=== PATIENT | female | born 1970 | race Caucasian/White ===

== ENCOUNTER 2024-07-07 00:49 | Observation (INO) | payer OTHER, SELFPAY ==
--- NOTE | 2024-07-07 00:54 | PC.NURSE ---
Patient arrived to floor via stretcher with EMS from [facility] at 00:52.
[2024-07-07 00:58] VITALS: PULSE 102
[2024-07-07 01:25] VITALS: BP 151/91; PULSE 102; RESP 17; TEMP 36.7; O2SAT 95; BMI 33.0
--- NOTE | 2024-07-07 01:49 | ECG_ITS ---
APPROVED REPORT Exam: Resting ECG HR:103 bpm ECG Measurements Heart Rate 103 AXES AK 134 P 76 QRSd 125 QRS 133 QT 377 T 46 QTc 436 Conclusion SINUS TACHYCARDIA RIGHT BUNDLE BRANCH BLOCK [120+ ms QRS DURATION, UPRIGHT V1, 40+ ms S IN I/aVL/V4/V5/V6] LEFT POSTERIOR FASCICULAR BLOCK [QRS AXIS > 109, INFERIOR Q] ABNORMAL ECG UNCONFIRMED REPORT Electronically signed by : Mark Figueroa MD 07/07/2024 08:41:56
--- NOTE | 2024-07-07 01:54 | P.HP_ITS ---
<Statement entered by Zhang Evans MD - 07/07/24 15:07> Rounded on patient after nurse practitioner. Personally examined and interviewed patient. Agree with exam findings and care plan as documented. History of Present Illness *Admission Date: 07/07/24 *Reason for visit:: Transplant *History of present illness: A 54-year-old female with a history of COPD, type 2 diabetes, congestive heart failure (CHF), bipolar disorder, hypertension, anxiety, prior myocardial infarction with cardiac stenting (vessel unknown), and reported leg deep vein thrombosis (DVT) presents as a transfer from [facility] to [facility] for NSTEMI evaluation, accepted by Dr. Villafuerte. She initially reported to [facility] with 2?3 days of cough (producing green sputum), increasing shortness of breath, and chest pain worse on inhalation. She denies fever or chills. She uses a home nebulizer without relief, takes hydroxyzine for anxiety (ineffective), and smokes 2 packs of cigarettes daily. She claims compliance with medications but cannot name them; records confirm anticoagulation clopidogrel (Plavix) 75 mg daily and aspirin 81 mg daily. The history is limited due to poor historian status but was obtained through interactive discussion with the patient, deemed moderately reliable, and chart review. At [facility], she was hypertensive (BP 173/98), tachycardic (HR 127), with oxygen saturation 98% on 3 L nasal cannula (EMS-initiated, unknown baselin e). EKG showed sinus tachycardia, occasional PVCs, and incomplete right bundle branch block. Troponin was elevated at 1155 ng/L, WBC 7.7, hemoglobin 16.5, hematocrit 48.8, platelets 217, glucose 395, BUN 24, creatinine 1.0, and calcium 9.5. Chest X-ray showed bilateral lower lung haziness and slight right costophrenic angle blunting, with normal heart size. She received 750 mg IV levofloxacin (Levaquin), 5 mg IV metoprolol, 325 mg oral aspirin, and an ACS dose of enoxaparin (Lovenox, dose not specified). Dr. Villafuerte recommended transfer for NSTEMI. On arrival at [facility], the patient is on 3 L nasal cannula with BP 140/85, HR 107, respiratory rate 18, oxygen saturation 96%, and afebrile. Patient is resting comfortably with suggestively improved appearance from description from [facility] with chest pain reduced to 2/10 (pressure/discomfort on deep inhalation). EKG shows sinus tachycardia and right bundle branch block, unchanged. Repeat troponin is 0.06 ng/L, D-dimer elevated at 0.86 ?g/mL. CTA chest is pending. She is monitored with hospital medicine and cardiology consultation planned. [facility] Disclaimer: The information contained in this section may have been updated after the patient was seen, as this information can be updated by other users. Medical History (Updated 07/07/24 @ 08:25 by Jose J Tyler APRN) Bipolar disorder Anxiety Hypertension CHF (congestive heart failure) COPD (chronic obstructive pulmonary disease) Diabetes mellitus Surgical History (Updated 07/07/24 @ 03:04 by Naya Mitchell RN) History of partial hysterectomy Family History (Updated 07/07/24 @ 03:04 by Naya Mitchell RN) Other Family history of diabetes mellitus Family history of heart disease Family history of lung cancer Social History (Updated 07/07/24 @ 03:00 by Naya Mitchell RN) Smoking Status: Current every day smoker alcohol intake: never current occupational status: disabled Travel in the last 8 weeks: None Other Medical History Have you received the Flu Vaccine for this season: No Have you received the Pneumonia Vaccine: No Review of Systems Review of Systems Review of systems (narrative): 13 point review of system negative except as listed in HPI Meds Home Medications and Allergies Home Medications ?Medication ?Instructions ?Recorded ?Confirmed ?Type aspirin 81 mg chewable tablet 81 mg PO DAILY 07/07/24 07/07/24 History atorvastatin 80 mg tablet 80 mg PO HS 07/07/24 07/07/24 History budesonide 160 mcg-glycopyr 9 2 inh inhalation BID 07/07/24 07/07/24 History mcg-formot 4.8 mcg/actuation HFA inhaler (Breztri Aerosphere) bupropion HCl 150 mg tablet,12 hr 150 mg PO BID 07/07/24 07/07/24 History sustained-release celecoxib 200 mg capsule (Celebrex) 200 mg PO DAILY 07/07/24 07/07/24 History cetirizine 10 mg tablet 10 mg PO DAILY 07/07/24 07/07/24 History clopidogrel 75 mg tablet (Plavix) 75 mg PO DAILY 07/07/24 07/07/24 History dulaglutide 1.5 mg/0.5 mL 1.5 mg SQ WEEKLY 07/07/24 07/07/24 History subcutaneous pen injector (Trulicity) famotidine 20 mg tablet 20 mg PO BID 07/07/24 07/07/24 History glipizide 10 mg tablet, extended 10 mg PO DAILY 07/07/24 07/07/24 History release 24 hr hydroxyzine HCl 25 mg tablet 25 mg PO TID 07/07/24 07/07/24 History insulin glargine 100 unit/mL (3 30 unit SQ HS 07/07/24 07/07/24 History mL) subcutaneous pen (Lantus Solostar U-100 Insulin) ipratropium 0.5 mg-albuterol 3 mg 3 ml inhalation QID 07/07/24 07/07/24 History (2.5 mg base)/3 mL nebulization soln isosorbide mononitrate 30 mg 30 mg PO DAILY 07/07/24 07/07/24 History tablet,extended release 24 hr lisinopril 5 mg tablet 5 mg PO DAILY 07/07/24 07/07/24 History metoprolol succinate 50 mg 50 mg PO DAILY 07/07/24 07/07/24 History tablet,extended release 24 hr montelukast 10 mg tablet 10 mg PO HS 07/07/24 07/07/24 History paroxetine HCl 40 mg tablet 40 mg PO DAILY 07/07/24 07/07/24 History spironolactone 25 mg tablet 25 mg PO DAILY 07/07/24 07/07/24 History thiamine HCl (vitamin B1) 100 mg 100 mg PO DAILY 07/07/24 07/07/24 History tablet tizanidine 4 mg tablet 4 mg PO TIDP PRN muscle spasms 07/07/24 07/07/24 History trazodone 50 mg tablet 50 mg PO HS 07/07/24 07/07/24 History New Prescriptions to Start Prescriptions: Allergies Allergy/AdvReac Type Severity Reaction Status Date / Time amoxicillin Allergy Unknown Verified 07/07/24 03:52 allergy reaction ampicillin Allergy Unknown Verified 07/07/24 03:52 allergy reaction empagliflozin (From Allergy Unknown Verified 07/07/24 03:52 Jardiance) allergy reaction Exam Data for Last 24 hours Vital signs and Labs for Last 24 Hours: Temp Pulse Resp BP Pulse Ox O2 Del Method O2 Flow Rate 98.5 F 107 H 18 140/85 96 Nasal Cannula 3 07/07/24 04:00 07/07/24 04:00 07/07/24 04:00 07/07/24 04:00 07/07/24 04:00 07/07/24 06:47 07/07/24 06:47 Laboratory Results - last 24 hr 07/07/24 01:22: D-Dimer 0.86 H, Troponin I 0.06 H, NT-Pro-B Natriuret Pep 820 H 07/07/24 04:45: WBC 7.1, RBC 5.40, Hgb 16.1, Hct 47.0, MCV 87.0, MCH 29.8, MCHC 34.3, RDW 13.3, Plt Count 228, MPV 10.7 H, Neut % (Auto) 89.3 H, Lymph % (Auto) 7.8 L, Winston % (Auto) 1.4 L, Eos % (Auto) 0.1, Baso % (Auto) 0.6, Neut # (Auto) 6.3, Lymph # (Auto) 0.6 L, Winston # (Auto) 0.1, Eos # (Auto) 0.0, Baso # (Auto) 0.0, PT 10.8, INR 0.96, Sodium 137, Potassium 5.7 H, Chloride 103, Carbon Dioxide 24, Anion Gap 15.7 H, BUN 25 H, Creatinine 0.80, Estimated Creat Clear 98, Estimated GFR 74, Est GFR ( Amer) 90, Glucose 417 H*, Hemoglobin A1c 12.9 H, Calcium 8.9, Phosphorus 4.6 H, Magnesium 1.8, TSH 1.43 07/07/24 05:47: POC Glucose 378 H* I & O for Last 24 hours: Intake & Output 07/04/24 07/05/24 07/06/24 07/07/24 23:59 23:59 23:59 23:59 Output Total 0 / 0 Balance 0 / 0 Weight 79.424 kg Constitutional Constitutional: no acute distress and obese *Routine HEENT Exam Head: Present normocephalic Eye: Present EOMI, PERRL, scleral injection and conjunctivae pink ENT: Present mucous membranes dry *Routine Neck Exam Neck: Present supple; Absent lymphadenopathy *Routine Respiratory Exam Respiratory: Present CTA bilaterally *Routine Cardiovascular Exam Cardiovascular: Present RRR and tachycardia *Routine Abdominal Exam Abdominal: Present soft, normoactive bowel sounds and obese; Absent tenderness *Routine Rectal Exam Rectal:: deferred *Routine Genitalia Exam Genitalia:: deferred *Routine Extremities Exam Extremities: Absent cyanosis, clubbing or edema *Routine Skin Exam Skin: Present dry and warm; Absent rash *Routine Neurological Exam Neurological: Present alert and oriented X3 Assessment and Plan *Assessment and plan (1) NSTEMI (non-ST elevated myocardial infarction): Status: Acute Category: Medical Code(s): I21.4 - Non-ST elevation (NSTEMI) myocardial infarction (2) Sinus tachycardia by electrocardiogram: Status: Acute Category: Medical Code(s): R00.0 - Tachycardia, unspecified (3) Type 2 diabetes mellitus with hyperglycemia: Status: Acute Category: Medical Code(s): E11.65 - Type 2 diabetes mellitus with hyperglycemia (4) CAD (coronary artery disease): Status: Acute Category: Medical Code(s): I25.10 - Atherosclerotic heart disease of kaibab coronary artery without angina pectoris (5) History of deep vein thrombosis: Status: Acute Category: Medical Code(s): Z86.718 - Personal history of other venous thrombosis and embolism (6) Tobacco dependence due to cigarettes: Status: Acute Category: Medical Code(s): F17.210 - Nicotine dependence, cigarettes, uncomplicated (7) Community acquired bilateral lower lobe pneumonia: Status: Acute Category: Medical Code(s): J18.9 - Pneumonia, unspecified organism Plan * Non-ST Elevation Myocardial Infarction (NSTEMI): Troponin 1155 ng/L at [facility], now 0.06 ng/L, with chest pain (2/10, worse on inhalation), sinus tachycardia (HR 107), and prior TN/stenting, in a patient with CHF (NT-proBNP 820), COPD, and smoking history. * Continue enoxaparin (Lovenox, verify dose, e.g., 1 mg/kg subcutaneous every 12 hours) for ACS, with clopidogrel 75 mg daily and aspirin 81 mg daily. * Consult cardiology urgently for NSTEMI evaluation obtain prior stent records for vessel/location. * Continue to trend troponin repeat EKG if chest pain worsens or new symptoms * Maintain telemetry for arrhythmia monitoring (PVCs, RBBB noted); monitor for ischemic symptoms every 4 hours. * Administer metoprolol 5 mg IV every 6 hours as needed for HR >100, holding if BP <100 systolic or HR <60. * Admit to medical-surgical floor with cardiology oversight. * Congestive Heart Failure Exacerbation: NT-proBNP 820, shortness of breath, bilateral lower lung haziness, and blunted right costophrenic angle, suggesting mild pulmonary edema, in a patient with NSTEMI and COPD, no reported edema but likely fluid overload. * Initiate furosemide (Lasix) 40 mg IV daily, holding if BP <90 systolic or hypovolemia signs * Order echocardiogram to assess ejection fraction and fluid status; compare to prior records. * Monitor daily weights * Consult cardiology for CHF management, considering NSTEMI and fluid balance * Maintain fluids at 50 mL/hour IV saline, adjusting for NSTEMI and CHF needs. * Chronic Obstructive Pulmonary Disease (COPD) Exacerbation: Cough with green sputum, shortness of breath, chest X-ray haziness, on 3 L nasal cannula (O2 96%), home nebulizer ineffective, in a 2 pack/day smoker, with possible pneumonia. * Administer albuterol-ipratropium (DuoNeb) nebulizer every 4?6 hours as needed for wheezing or dyspnea. * Continue levofloxacin 750 mg IV daily (initiated at [facility]) pending sputum culture and respiratory viral panel to rule out bacterial/viral infection. * Continue 3 L nasal cannula, titrating to O2 >92; monitor respiratory rate and saturation every 2 hours. * Consult pulmonology for COPD optimization and smoking cessation counseling; offer nicotine replacement (e.g., 21 mg patch daily). * Order chest X-ray in 24 hours to monitor lung haziness; await CTA chest results for pulmonary assessment. * Type 2 Diabetes Mellitus with Hyperglycemia: Glucose 395, likely uncontrolled diabetes exacerbated by stress or infection, no prior A1c reported, in a patient with COPD and NSTEMI. * Administer sliding-scale insulin every 6, continue or start long-acting insulin * Order hemoglobin A1c to assess chronic control; consult endocrinology if A1c >7% or glucose exceeds 300. * Monitor glucose every 6 hours; recheck with morning labs. * Educate patient on low-carb diet to support glucose control; consult dietitian for diabetes-friendly meal plan. * Hypertension: BP 140/85 (improved from 173/98), likely chronic and stress- related, no end-organ damage (troponin 0.06, normal EKG), in a patient with NSTEMI and CHF. * Continue metoprolol as above for rate control; hold additional antihypertensives if BP <110 systolic to avoid hypotension with NSTEMI. * Monitor BP every 4 hours, targeting <140/90; resume home antihypertensives once stable post-cardiology evaluation. * Recheck electrolytes in 24 hours to monitor for medication effects * Anxiety and Bipolar Disorder: History of anxiety (hydroxyzine ineffective) and bipolar disorder, with no acute psychiatric symptoms beyond stress from symptoms, in a patient with poor coping (2 pack/day smoking). * Hold hydroxyzine * History of DVT and Tobacco Dependence: Reported prior leg DVT, on Plavix and aspirin, with elevated D-dimer (0.86), and ongoing 2 pack/day smoking, increasing NSTEMI and COPD risks. * Await CTA chest to rule out pulmonary embolism; continue Lovenox as above for NSTEMI, monitoring for bleeding (hemoglobin 16.5). * Offer nicotine replacement and smoking cessation counseling; consult pulmonology for lung cancer screening (smoking history). * Monitor for leg swelling, pain, or new DVT signs every 8 hours; order lower extremity Doppler if symptoms arise. * Educate patient on smoking cessation benefits for cardiovascular and pulmonary health. Additional Orders: * Admit to medical-surgical floor with telemetry for NSTEMI, CHF, and COPD management. * Maintain 3 L nasal cannula, titrating to saturation >92. * Check vitals every 4 hours, including glucose every 4 hours. * Offer acetaminophen 650 mg oral every 6 hours as needed for discomfort; avoid NSAIDs due to bleeding risk (Plavix, Lovenox).[email or web address]. * Educate patient on NSTEMI, CHF, COPD, and smoking cessation. * Expedite CTA chest results, cardiology/pulmonology consults, NT-proBNP trend, and sputum culture.
[2024-07-07 01:57] LABS: Troponin I 0.06 ng/ml (0.00-0.034)
[2024-07-07 02:08] LABS: D-Dimer 0.86 ug/mL (0.0-0.5)
[2024-07-07 02:20] LABS: NT Pro Brain Natriuretic Pep. 820 pg/mL (0-125)
[2024-07-07] MEDS: CEFTRIAXONE 1 GM 1 GM in 0.9 % SODIUM CHLORIDE 50 ML IV (02:22)
[2024-07-07] MEDS: 0.9 % SODIUM CHLORIDE 1000ML 1,000 ML 75 ML IV (02:22)
[2024-07-07] MEDS: AZITHROMYCIN 500 MG in 0.9 % SODIUM CHLORIDE 250 ML 250 MG IV (02:55)
[2024-07-07 03:44] VITALS: PULSE 112
[2024-07-07] MEDS: SODIUM CHLORIDE 3% 15ML NEB 3 ML IH (03:47)
[2024-07-07 04:00] VITALS: BP 140/85; PULSE 107; PULSE 110; RESP 18; TEMP 36.9; O2SAT 96; BMI 33.0
[2024-07-07 05:20] LABS: Basophils % 0.6 % (0.1-2.0); Eosinophils % 0.1 % (0.1-12.0); Hemoglobin 16.1 g/dL (12.2-16.2); Lymphocytes # 0.6 K/mm3 (0.7-4.5); Lymphocytes % 7.8 % (10-50); Mean Corpuscular HGB Conc 34.3 g/dL (31.8-35.4); Mean Corpuscular Hemoglobin 29.8 pg (27.0-31.2); Mean Platelet Volume 10.7 fl (7.4-10.4); Monocytes # 0.1 K/mm3 (0.1-1.0); Monocytes % 1.4 % (1.7-9.3); Neutrophils # 6.3 K/mm3 (1.8-7.8); Neutrophils % 89.3 % (37.0-80.0); Nucleated Red Blood Cells # 0 10^3/uL; Nucleated Red Blood Cells % 0 %; Platelet Count 228 K/mm3 (142-424); Red Cell Distribution Width 13.3 % (11.5-17.5); Red Cell Distribution Width-SD 41.5 fL; White Blood Count 7.1 K/mm3 (4.8-10.8)
[2024-07-07 05:29] LABS: Chloride 103 mmol/L (98-107); INR 0.96 (0.9-1.1); Potassium 5.7 mmoL/L (3.5-5.1); Prothrombin Time 10.8 seconds (10.1-12.5); Sodium 137 mmol/L (136-145)
[2024-07-07 05:32] LABS: Anion Gap 15.7 mEq/L (5-15); Blood Urea Nitrogen 25 mg/dl (7-17); Carbon Dioxide 24 mmol/L (22.0-30.0); Creatinine Clearance Estimated 98 mL/min (50-200); Estimated Glomerular Filt Rate 74 ml/min (>60); GFR (African American) 90 ML/MIN (>60); Phosphorous 4.6 mg/dl (2.5-4.5)
[2024-07-07 05:33] LABS: Calcium 8.9 mg/dl (8.4-10.2); Magnesium 1.8 mg/dl (1.6-2.3)
[2024-07-07 05:43] LABS: Hemoglobin A1C 12.9 % (4.0-6.0)
[2024-07-07 05:44] LABS: Glucose 417 mg/dl (74-100)
[2024-07-07] MEDS: humaLOG 100 UNITS/ML 10ML VIAL (SSI) SUBCUT (05:49)
[2024-07-07 05:57] LABS: POC Glucose,Bedside 378 (70-110)
[2024-07-07 06:03] LABS: Thyroid Stimulating Hormone 1.43 uIU/mL (0.465-4.68)
--- NOTE | 2024-07-07 07:07 | CT_ITS ---
FINAL REPORT TECHNIQUE: The patient was injected with IV contrast. Axial images were obtained through the chest in a PE protocol. 3-D reconstruction images were also performed. Individualized dose reduction techniques using automated exposure control or adjustment of the MA and/or KV according to patient's size were employed. CLINICAL HISTORY: dyspnea, new oxygen requirement FINDINGS: Mediastinal vasculature is adequately opacified. No pulmonary artery filling defects are identified to suggest PE. There is no aortic dissection. There is no axillary adenopathy. There is no hilar or mediastinal adenopathy. The heart size is normal. There is no pericardial or pleural effusion. There are mild to moderate changes of centrilobular emphysema. There is a noncalcified nodule in the right lower lobe measuring up to 7 mm in greatest dimension. This is best seen on image 40 of series 3. Bibasilar pulmonary scarring is noted. Limited images of the upper abdomen demonstrate multiple calcified granulomas in the spleen. IMPRESSION: No pulmonary embolus or dissection. 7 mm right lower lobe nodule. CT chest in 6 months is recommended per Fleischner Society criteria. Reviewed, Interpreted and Dictated by Paul Oviedo MD Transcribed by Kalpana Avina Authenticated and [facility] [place]
[2024-07-07] MEDS: IOPAMIDOL-370 (76%);100ML BOTTLE 85 ML IV (07:42)
[2024-07-07] MEDS: 0.9 % SODIUM CHLORIDE 50 ML VIAL IV (07:42)
[2024-07-07] MEDS: SODIUM CHLORIDE 0.9% 10ML SYR (RAD ONLY) 10 ML IV (07:43)
[2024-07-07 08:00] VITALS: BP 146/89; PULSE 100; PULSE 103; RESP 16; TEMP 36.1; O2SAT 98
[2024-07-07] MEDS: CLOPIDOGREL 75MG TAB 75 MG PO (08:21)
[2024-07-07] MEDS: ISOSORBIDE MONO 30MG TAB.ER.24H 30 MG PO (08:21)
[2024-07-07] MEDS: ENOXAPARIN 80MG/0.8ML SYRINGE 80 MG SUBCUT (08:21)
[2024-07-07] MEDS: INSULIN GLARGINE 100 UNITS/ML 3ML FLEXPEN 40 UNIT SUBCUT (08:21)
[2024-07-07] MEDS: SPIRONOLACTONE 25MG TABLET 25 MG PO (08:21)
[2024-07-07 08:24] LABS: Troponin I 0.05 ng/ml (0.00-0.034)
--- NOTE | 2024-07-07 12:32 | PC.NURSE ---
Pt requested AMA paper, she stated that she was just ready to go home. This nurse and MD made pt aware of risks when leaving AMA, pt verbalized understanding. AMA paper signed and IV was removed. Daughter came to room to pick pt up.
--- NOTE | 2024-07-07 15:08 | P.DS_ITS ---
General Admission date:: 07/07/24 Discharge date: 07/07/24 HPI HPI HPI: A 54-year-old female with a history of COPD, type 2 diabetes, congestive heart failure (CHF), bipolar disorder, hypertension, anxiety, prior myocardial infarction with cardiac stenting (vessel unknown), and reported leg deep vein thrombosis (DVT) presents as a transfer from [facility] to [facility] for NSTEMI evaluation, accepted by Dr. Villafuerte. She initially reported to [facility] ER with 2?3 days of cough (producing green sputum), increasing shortness of breath, and chest pain worse on inhalation. She denies fever or c hills. She uses a home nebulizer without relief, takes hydroxyzine for anxiety (ineffective), and smokes 2 packs of cigarettes daily. She claims compliance with medications but cannot name them; records confirm anticoagulation clopidogrel (Plavix) 75 mg daily and aspirin 81 mg daily. The history is limited due to poor historian status but was obtained through interactive discussion with the patient, deemed moderately reliable, and chart review. At [facility], she was hypertensive (BP 173/98), tachycardic (HR 127), with oxygen saturation 98% on 3 L nasal cannula (EMS-initiated, unknown baseline). EKG showed sinus tachycardia, occasional PVCs, and incomplete right bundle branch block. Troponin was elevated at 1155 ng/L, WBC 7.7, hemoglobin 16.5, hematocrit 48.8, platelets 217, glucose 395, BUN 24, creatinine 1.0, and calcium 9.5. Chest X-ray showed bilateral lower lung haziness and slight right costophrenic angle blunting, with normal heart size. She received 750 mg IV levofloxacin (Levaquin), 5 mg IV metoprolol, 325 mg oral aspirin, and an ACS dose of enoxaparin (Lovenox, dose not specified). Dr. Villafuerte recommended transfer for NSTEMI. On arrival at [facility], the patient is on 3 L nasal cannula with BP 140/85, HR 107, respiratory rate 18, oxygen saturation 96%, and afebrile. Patient is resting comfortably with suggestively improved appearance from description from [facility] with chest pain reduced to 2/10 (pressure/discomfort on deep inhalation). EKG shows sinus tachycardia and right bundle branch block, unchanged. Repeat troponin is 0.06 ng/L, D-dimer elevated at 0.86 ?g/mL. CTA chest is pending. She is monitored with hospital medicine and cardiology consultation planned. Hospital Course Hospital Course Hospital Course: Patient presented as transfer due to NSTEMI and COPD exacerbation versus CHF exacerbation versus pneumonia. Troponin was detectable at 0.06. BNP 800. A1c elevated showing severely uncontrolled diabetes with at 12.9. Cardiology was consulted to evaluate. On morning rounds, discussed plan for the day of cardiology evaluation, possible heart cath, and continued antibiotics. Patient frustrated that nothing has been done yet. Explained that she had just been transferred and we needed to do further workup to determine appropriate intervention. Discussed need for continued admission. Patient stated she did not want to stay for further workup. Explained that this risk to life and limb given the findings of stress on her heart, continued respiratory infection, and concern for increased oxygen requirement from baseline. After explaining risks of leaving his medical advice and benefits of staying for further management, patient elected to leave via patient directed discharge. No adjustments made to home medication regimen at discharge. High risk for decompensation, readmission, increased morbidity/mortality. Patient left before being evaluated by cardiology. Exam Data for Last 24 hours Vital signs and Labs for Last 24 Hours: Temp Pulse Resp BP Pulse Ox O2 Del Method O2 Flow Rate 96.9 F L 103 H 16 146/89 H 98 Nasal Cannula 3 07/07/24 08:00 07/07/24 08:00 07/07/24 08:00 07/07/24 08:00 07/07/24 08:00 07/07/24 09:00 07/07/24 09:00 Laboratory Results - last 24 hr 07/07/24 01:22: D-Dimer 0.86 H, Troponin I 0.06 H, NT-Pro-B Natriuret Pep 820 H 07/07/24 04:45: WBC 7.1, RBC 5.40, Hgb 16.1, Hct 47.0, MCV 87.0, MCH 29.8, MCHC 34.3, RDW 13.3, Plt Count 228, MPV 10.7 H, Neut % (Auto) 89.3 H, Lymph % (Auto) 7.8 L, [place] % (Auto) 1.4 L, Eos % (Auto) 0.1, Baso % (Auto) 0.6, Neut # (Auto) 6.3, Lymph # (Auto) 0.6 L, [place] # (Auto) 0.1, Eos # (Auto) 0.0, Baso # (Auto) 0.0, PT 10.8, INR 0.96, Sodium 137, Potassium 5.7 H, Chloride 103, Carbon Dioxide 24, Anion Gap 15.7 H, BUN 25 H, Creatinine 0.80, Estimated Creat Clear 98, Estimated GFR 74, Est GFR ( Amer) 90, Glucose 417 H*, Hemoglobin A1c 12.9 H, Calcium 8.9, Phosphorus 4.6 H, Magnesium 1.8, TSH 1.43 07/07/24 05:47: POC Glucose 378 H* 07/07/24 07:50: Troponin I 0.05 H I & O for Last 24 hours: Intake & Output 07/04/24 07/05/24 07/06/24 07/07/24 23:59 23:59 23:59 23:59 Intake Total 0 / 0 Output Total 0 / 0 Balance 0 / 0 Weight 79.424 kg Constitutional Constitutional: mild distress, obese, chronically ill appearing and cooperative *Routine HEENT Exam Head: Present normocephalic Eye: Present EOMI and PERRL ENT: Present mucous membranes moist *Routine Neck Exam Neck: Present supple; Absent lymphadenopathy *Routine Respiratory Exam Respiratory: Present prolonged expiratory phase, rhonchi and wheezes; Absent crackles *Routine Cardiovascular Exam Cardiovascular: Present RRR *Routine Abdominal Exam Abdominal: Present soft and normoactive bowel sounds; Absent tenderness *Routine Rectal Exam Patient deferred: visual exam *Routine Exam Patient deferred: external exam *Routine Extremities Exam Extremities: Present edema (trace); Absent cyanosis or clubbing *Routine Skin Exam Skin: Present intact and warm; Absent rash *Routine Neurological Exam Neurological: Present alert, oriented X3 and moving all extremities; Absent altered mental status Results Data Completed and Pending Labs on day of discharge: Labs from last 24 hours 07/07/24 07/07/24 07/07/24 07:50 05:47 04:45 WBC 7.1 RBC 5.40 Hgb 16.1 Hct 47.0 MCV 87.0 MCH 29.8 MCHC 34.3 RDW 13.3 Plt Count 228 MPV 10.7 H Neut % (Auto) 89.3 H Lymph % (Auto) 7.8 L [place] % (Auto) 1.4 L Eos % (Auto) 0.1 Baso % (Auto) 0.6 Neut # (Auto) 6.3 Lymph # (Auto) 0.6 L [place] # (Auto) 0.1 Eos # (Auto) 0.0 Baso # (Auto) 0.0 PT 10.8 INR 0.96 D-Dimer Sodium 137 Potassium 5.7 H Chloride 103 Carbon Dioxide 24 Anion Gap 15.7 H BUN 25 H Creatinine 0.80 Estimated Creat Clear 98 Estimated GFR 74 Est GFR ( Amer) 90 Glucose 417 H* POC Glucose 378 H* Hemoglobin A1c 12.9 H Calcium 8.9 Phosphorus 4.6 H Magnesium 1.8 Troponin I 0.05 H NT-Pro-B Natriuret Pep TSH 1.43 07/07/24 01:22 WBC RBC Hgb Hct MCV MCH MCHC RDW Plt Count MPV Neut % (Auto) Lymph % (Auto) [place] % (Auto) Eos % (Auto) Baso % (Auto) Neut # (Auto) Lymph # (Auto) [place] # (Auto) Eos # (Auto) Baso # (Auto) PT INR D-Dimer 0.86 H Sodium Potassium Chloride Carbon Dioxide Anion Gap BUN Creatinine Estimated Creat Clear Estimated GFR Est GFR ( Amer) Glucose POC Glucose Hemoglobin A1c Calcium Phosphorus Magnesium Troponin I 0.06 H NT-Pro-B Natriuret Pep 820 H TSH DS: Diagnosis Discharge Diagnosis (1) NSTEMI (non-ST elevated myocardial infarction): Status: Acute Code(s): I21.4 - Non-ST elevation (NSTEMI) myocardial infarction (2) Sinus tachycardia by electrocardiogram: Status: Acute Code(s): R00.0 - Tachycardia, unspecified (3) Type 2 diabetes mellitus with hyperglycemia: Status: Acute Code(s): E11.65 - Type 2 diabetes mellitus with hyperglycemia (4) CAD (coronary artery disease): Status: Acute Code(s): I25.10 - Atherosclerotic heart disease of [place] coronary artery without angina pectoris (5) History of deep vein thrombosis: Status: Acute Code(s): Z86.718 - Personal history of other venous thrombosis and embolism (6) Tobacco dependence due to cigarettes: Status: Acute Code(s): F17.210 - Nicotine dependence, cigarettes, uncomplicated (7) Community acquired bilateral lower lobe pneumonia: Status: Acute Code(s): J18.9 - Pneumonia, unspecified organism Meds Home Medications and Allergies Home Medications ?Medication ?Instructions ?Recorded ?Confirmed ?Type aspirin 81 mg chewable tablet 81 mg PO DAILY 07/07/24 07/07/24 History atorvastatin 80 mg tablet 80 mg PO HS 07/07/24 07/07/24 History budesonide 160 mcg-glycopyr 9 2 inh inhalation BID 07/07/24 07/07/24 History mcg-formot 4.8 mcg/actuation HFA inhaler (Breztri Aerosphere) bupropion HCl 150 mg tablet,12 hr 150 mg PO BID 07/07/24 07/07/24 History sustained-release celecoxib 200 mg capsule (Celebrex) 200 mg PO DAILY 07/07/24 07/07/24 History cetirizine 10 mg tablet 10 mg PO DAILY 07/07/24 07/07/24 History clopidogrel 75 mg tablet (Plavix) 75 mg PO DAILY 07/07/24 07/07/24 History dulaglutide 1.5 mg/0.5 mL 1.5 mg SQ WEEKLY 07/07/24 07/07/24 History subcutaneous pen injector (Trulicity) famotidine 20 mg tablet 20 mg PO BID 07/07/24 07/07/24 History glipizide 10 mg tablet, extended 10 mg PO DAILY 07/07/24 07/07/24 History release 24 hr hydroxyzine HCl 25 mg tablet 25 mg PO TID 07/07/24 07/07/24 History insulin glargine 100 unit/mL (3 30 unit SQ HS 07/07/24 07/07/24 History mL) subcutaneous pen (Lantus Solostar U-100 Insulin) ipratropium 0.5 mg-albuterol 3 mg 3 ml inhalation QID 07/07/24 07/07/24 History (2.5 mg base)/3 mL nebulization soln isosorbide mononitrate 30 mg 30 mg PO DAILY 07/07/24 07/07/24 History tablet,extended release 24 hr lisinopril 5 mg tablet 5 mg PO DAILY 07/07/24 07/07/24 History metoprolol succinate 50 mg 50 mg PO DAILY 07/07/24 07/07/24 History tablet,extended release 24 hr montelukast 10 mg tablet 10 mg PO HS 07/07/24 07/07/24 History paroxetine HCl 40 mg tablet 40 mg PO DAILY 07/07/24 07/07/24 History spironolactone 25 mg tablet 25 mg PO DAILY 07/07/24 07/07/24 History thiamine HCl (vitamin B1) 100 mg 100 mg PO DAILY 07/07/24 07/07/24 History tablet tizanidine 4 mg tablet 4 mg PO TIDP PRN muscle spasms 07/07/24 07/07/24 History trazodone 50 mg tablet 50 mg PO HS 07/07/24 07/07/24 History New Prescriptions to Start Prescriptions: Allergies Allergy/AdvReac Type Severity Reaction Status Date / Time amoxicillin Allergy Unknown Verified 07/07/24 03:52 allergy reaction ampicillin Allergy Unknown Verified 07/07/24 03:52 allergy reaction empagliflozin (From Allergy Unknown Verified 07/07/24 03:52 Jardiance) allergy reaction Discharge Plan Disposition Patient Disposition: Left Against Medical Advice Patient Discharge Instructions Print Language: Lithuanian Providers Admit Provider: Zhang Evans Attending Provider: Zhang Evans
== END 2024-07-07 12:25 | disposition left against medical advice (07) ==
PROVIDERS: Nurse Practitioner Family; Admitting Provider Internal Medicine Adolescent Medicine; PCP Physician Assistant; Visit Provider Internal Medicine Adolescent Medicine
DX: I21.4 Non-ST elevation (NSTEMI) myocardial infarction (principal); I11.0 Hypertensive heart disease with heart failure; I50.9 Heart failure, unspecified; E11.65 Type 2 diabetes mellitus with hyperglycemia; F17.210 Nicotine dependence, cigarettes, uncomplicated; F31.9 Bipolar disorder, unspecified; E66.9 Obesity, unspecified; I45.10 Unspecified right bundle-branch block; F41.9 Anxiety disorder, unspecified; R00.0 Tachycardia, unspecified; Z53.29 Procedure and treatment not carried out because of patient's decision for other reasons; Z79.899 Other long term (current) drug therapy; Z79.82 Long term (current) use of aspirin; Z68.33 Body mass index [BMI] 33.0-33.9, adult; Z88.0 Allergy status to penicillin; Z88.8 Allergy status to other drugs, medicaments and biological substances; Z79.02 Long term (current) use of antithrombotics/antiplatelets; Z79.4 Long term (current) use of insulin; Z79.85 Long-term (current) use of injectable non-insulin antidiabetic drugs; Z83.3 Family history of diabetes mellitus; Z80.1 Family history of malignant neoplasm of trachea, bronchus and lung; Z82.49 Family history of ischemic heart disease and other diseases of the circulatory system; Z90.79 Acquired absence of other genital organ(s)
CPT/HCPCS: 36415; 71275; 80048; 82962; 83036; 83735; 83880; 84100; 84443; 84484; 85025; 85378; 85610; 87040; 93005; G0378; J0456; J0696; J1650; J7030; J7050; Q9967

== ENCOUNTER 2024-11-04 19:08 | Observation (INO) | payer OTHER, SELFPAY ==
--- NOTE | 2024-11-04 19:28 | ECG_ITS ---
APPROVED REPORT Exam: Resting ECG HR:97 bpm ECG Measurements Heart Rate 97 AXES CA 135 P 73 QRSd 111 QRS 114 QT 369 T 41 QTc 424 Conclusion SINUS RHYTHM LEFT ATRIAL abnormality INCOMPLETE RIGHT BUNDLE BRANCH BLOCK [90+ ms QRS DURATION, TERMINAL R IN V1/V2, 40+ ms S IN I/aVL/V4/V5/V6] RIGHT VENTRICULAR HYPERTROPHY [SOME/ALL OF: PROMINENT R IN V1, LATE TRANSITION, RAD, GEE, SSS] NONSPECIFIC ST ELEVATION [0.05+ mV ST ELEVATION] ABNORMAL ECG UNCONFIRMED REPORT Electronically signed by : Mark Figueroa MD 11/06/2024 12:46:53
[2024-11-04 19:29] VITALS: O2SAT 96
--- NOTE | 2024-11-04 19:29 | PC.NURSE ---
Pt arrived to ICU via stretcher from ambulance via stretcher @191
[2024-11-04 19:31] VITALS: BMI 30.7
--- NOTE | 2024-11-04 19:45 | XR_ITS ---
PROCEDURE INFORMATION: Exam: XR Chest Exam date and time: 11/04/2024 8:45 PM Age: 54 years old Clinical indication: Pain; Chest pressure; Additional info: Chest pain TECHNIQUE: Imaging protocol: Radiologic exam of the chest. Views: 1 view. COMPARISON: CT ANGIO CHEST PE PROTOCOL 07/07/2024 7:33 AM FINDINGS: Lungs: Minimal right basilar subsegmental atelectasis. No consolidation. Pleural spaces: Unremarkable. No pleural effusion. No pneumothorax. Heart/Mediastinum: Unremarkable. No cardiomegaly. Bones/joints: Unremarkable. IMPRESSION: Basilar subsegmental atelectasis.
[2024-11-04 19:52] VITALS: PULSE 102
[2024-11-04 20:00] VITALS: BP 160/92; PULSE 100; RESP 24; O2SAT 97
--- NOTE | 2024-11-04 20:00 | EXP.HP ---
History of Present Illness *Admission Date: 11/04/24 *Reason for visit:: NSTEMI *History of present illness: This is a 54-year-old female that presents to [facility] ICU with transition of care from [facility] emergency department for identified presenting chest pain, abnormal ECG and elevated troponin. [facility] ED provider contacted talent acquisition sourcer who recommended transition of care to [facility] for NSTEMI and cardiology services. The patient presented to outside hospital with chest pain and her ED evaluation identified elevated troponins with past medical history significant for coronary disease and stent placement by Dr. Bullock in [facility] (data deficit). Currently the patient reports no further chest pain and she is tolerating her IV anticoagulation therapy with no identified unusual headaches, bruising or bleeding. She reports no acute dyspnea, palpitations, nausea, vomiting or diaphoresis. Her presenting blood pressure to outside hospital was 183/91 with tachycardia stable respiratory rates and saturating appropriately on 3 L of oxygen via nasal cannula. Her usual home oxygen requirement is 2 L. Her ED chest x-ray identified no acute disease. Her electrolytes were normal including renal function with a creatinine 0.9. Her CBC identified a normal white blood cell count hemoglobin of 16 and normal platelets 230. She received a full aspirin, IV beta-taryn therapy and was she was started on IV heparin and her care was transitioned to our facility. [facility] Medical History (Updated 11/04/24 @ 20:09 by Yehuda Chaudhary MD) CAD (coronary artery disease) Tobacco dependence due to cigarettes Bipolar disorder Anxiety Hypertension CHF (congestive heart failure) COPD (chronic obstructive pulmonary disease) Diabetes mellitus Surgical History (Updated 11/04/24 @ 20:09 by Yehuda Chaudhary MD) H/O cardiac catheterization History of partial hysterectomy Family History (Updated 07/07/24 @ 03:04 by Naya Mitchell RN) Other Family history of diabetes mellitus Family history of heart disease Family history of lung cancer Social History (Updated 07/07/24 @ 08:35 by Jose J Tyler APRN) Smoking Status: Current every day smoker alcohol intake: never current occupational status: disabled Travel in the last 8 weeks?: None Have you lived/traveled outside [place] in past 30 days?: No Contact w/someone who lives/traveled outside US past 30 days?: No Exposure to someone with infectious disease in past 14 days?: No Do you have a fever (greater than 100.4 F or 38 C)?: No Have you tested positive for COVID-19?: No Exposed to someone with COVID-19 in past 14 days?: No Do you have a sore throat?: No Do you have a cough?: No Do you have any weakness?: No Do you have any diarrhea?: No Are you experiencing any unusual bleeding?: No Do you have any muscle aches/pain?: No Do you have any abdominal pain?: No Are you experiencing loss of taste or smell?: No Other Medical History Have you received the Flu Vaccine for this season: No Have you received the Pneumonia Vaccine: No Review of Systems Review of Systems Review of systems:: pertinent systems reviewed and negative unless documented below (Chest pain resolved) Meds Home Medications and Allergies Home Medications ?Medication ?Instructions ?Recorded ?Confirmed ?Type aspirin 81 mg chewable tablet 81 mg PO DAILY 07/07/24 11/04/24 History atorvastatin 80 mg tablet 80 mg PO HS 07/07/24 11/04/24 History budesonide 160 mcg-glycopyr 9 2 inh inhalation BID 07/07/24 07/07/24 History mcg-formot 4.8 mcg/actuation HFA inhaler (Breztri Aerosphere) bupropion HCl 150 mg tablet,12 hr 150 mg PO BID 07/07/24 11/04/24 History sustained-release celecoxib 200 mg capsule (Celebrex) 200 mg PO DAILY 07/07/24 11/04/24 History clopidogrel 75 mg tablet (Plavix) 75 mg PO DAILY 07/07/24 11/04/24 History dulaglutide 1.5 mg/0.5 mL 1.5 mg SQ WEEKLY 07/07/24 11/04/24 History subcutaneous pen injector (Trulicity) famotidine 20 mg tablet 20 mg PO BID 07/07/24 11/04/24 History glipizide 10 mg tablet, extended 10 mg PO DAILY 07/07/24 11/04/24 History release 24 hr insulin glargine 100 unit/mL (3 30 unit SQ HS 07/07/24 11/04/24 History mL) subcutaneous pen (Lantus Solostar U-100 Insulin) ipratropium 0.5 mg-albuterol 3 mg 3 ml inhalation QID 07/07/24 11/04/24 History (2.5 mg base)/3 mL nebulization soln isosorbide mononitrate 30 mg 30 mg PO DAILY 07/07/24 11/04/24 History tablet,extended release 24 hr lisinopril 5 mg tablet 5 mg PO DAILY 07/07/24 11/04/24 History metoprolol succinate 50 mg 50 mg PO DAILY 07/07/24 11/04/24 History tablet,extended release 24 hr montelukast 10 mg tablet 10 mg PO HS 07/07/24 11/04/24 History paroxetine HCl 40 mg tablet 40 mg PO DAILY 07/07/24 11/04/24 History spironolactone 25 mg tablet 25 mg PO DAILY 07/07/24 11/04/24 History thiamine HCl (vitamin B1) 100 mg 100 mg PO DAILY 07/07/24 11/04/24 History tablet trazodone 50 mg tablet 50 mg PO HS 07/07/24 11/04/24 History New Prescriptions to Start Prescriptions: Allergies Allergy/AdvReac Type Severity Reaction Status Date / Time amoxicillin Allergy Unknown Verified 07/07/24 03:52 allergy reaction ampicillin Allergy Unknown Verified 07/07/24 03:52 allergy reaction empagliflozin (From Allergy Unknown Verified 07/07/24 03:52 Jardiance) allergy reaction Exam Data for Last 24 hours I & O for Last 24 hours: Intake & Output 11/01/24 11/02/24 11/03/24 11/04/24 23:59 23:59 23:59 23:59 Weight 73.754 kg Constitutional Constitutional: no acute distress, obese, chronically ill appearing and cooperative *Routine HEENT Exam Head: Present normocephalic Eye: Present EOMI, PERRL and conjunctivae pink ENT: Present mucous membranes moist *Routine Neck Exam Neck: Present supple and trachea midline; Absent JVD or lymphadenopathy *Routine Respiratory Exam Respiratory: Present rhonchi, normal respiratory effort and symmetric chest movement; Absent respiratory distress *Routine Cardiovascular Exam Cardiovascular: Present Normal S1, Normal S2 and tachycardia; Absent murmur *Routine Abdominal Exam Abdominal: Present soft and normoactive bowel sounds; Absent tenderness *Routine Rectal Exam Rectal:: deferred *Routine Genitalia Exam Genitalia:: deferred *Routine Extremities Exam Extremities: Present full ROM; Absent edema *Routine Skin Exam Skin: Absent rash *Routine Neurological Exam Neurological: Present alert, oriented X3, moving all extremities, normal tone and normal speech Routine Psychiatric Exam Psychiatric: Present normal affect, normal thought process, cooperative and good insight Assessment and Plan *Assessment and plan (1) NSTEMI (non-ST elevated myocardial infarction): Status: Acute Category: Medical Code(s): I21.4 - Non-ST elevation (NSTEMI) myocardial infarction (2) CAD (coronary artery disease): Status: Acute Category: Medical Code(s): I25.10 - Atherosclerotic heart disease of [place] coronary artery without angina pectoris (3) Tobacco dependence due to cigarettes: Status: Acute Category: Medical Code(s): F17.210 - Nicotine dependence, cigarettes, uncomplicated (4) Type 2 diabetes mellitus with hyperglycemia: Status: Acute Category: Medical Code(s): E11.65 - Type 2 diabetes mellitus with hyperglycemia (5) COPD (chronic obstructive pulmonary disease): Status: Acute Category: Medical Code(s): J44.9 - Chronic obstructive pulmonary disease, unspecified Plan This is a 54-year-old female with a past medical history of coronary artery disease and ongoing cardiac risk factors with diabetes and tobacco dependence. She presented to [facility] emergency department with chest pain and elevated troponins were noted. She was transition to our facility for cardiology service line. Problems addressed as follows: NSTEMI Coronary artery disease s/p C with stents (data deficit) ICU care with continuous telemetry and pulse oximetry monitoring Cardiology consult ED troponin 1283 Troponin trend Echocardiogram pending Outside hospital chest x-ray with no acute disease A.m. ECG evaluation IV heparin Drug therapy requiring intensive monitoring for toxicity Routine PTT Antiplatelet therapy P2Y12 inhibitor therapy High-dose statin therapy Beta-taryn therapy ARB therapy Long-acting nitrate therapy As needed NTG Pain control Acute on chronic hypoxic respiratory failure COPD on home O2 (2 L via NC) Tobacco dependence Pulse oximetry monitoring Oxygen therapy to maintain appropriate oxygen saturations Currently requiring 3 L via nasal cannula Chest x-ray pending Elli/Esvin inhalation therapy ICS therapy Tobacco cessation education Nicotine replacement therapy Diabetes Hemoglobin A1c pending Routine blood sugar monitoring Basal insulin therapy Sliding scale insulin therapy Consistent carbohydrate diet Hypertension Hypertensive urgency Routine blood pressure monitoring Beta-taryn therapy ARB therapy Long-acting nitrate therapy MAR therapy Mood disorder Routine nursing interaction Trazodone therapy Hydroxyzine therapy ECG QTc 424 MS The length of stay for this patient will be 2 midnights or greater due to above diagnoses. Total amount of critical care time spent was 35 minutes not counting procedures performed. This time included high complexity decision making to assess and treat vital organ system failure in this patient who has impairment of 1 or more vital organ systems such as there is a high probability of imminent or life-threatening deterioration of the patient's condition. Failure to initiate the above interventions on an urgent basis would likely result in sudden, clinically significant or life-threatening deterioration in the patient's condition. The patient required my highest level of preparedness to intervene emergently and I personally spent this critical care time directly and personally managing the patient. This critical care time included obtaining a history; examining the patient; frequent vital monitoring including pulse oximetry; ordering and review of studies; arranging urgent treatment with development of a management plan; evaluation of patient's response to treatment; frequent reassessment; and, discussions with other providers including ICU staff.
[2024-11-04 20:49] LABS: PTT Heparin (inpatient only) 26.5 Seconds (50-75)
[2024-11-04] MEDS: HEPARIN DRIP CONSULT 1 EACH NOTAPPLIC (20:56)
[2024-11-04] MEDS: humaLOG 100 UNITS/ML 10ML VIAL (SSI) SUBCUT (21:08)
[2024-11-04] MEDS: ATORVASTATIN 40MG TABLET 80 MG PO (21:09)
[2024-11-04] MEDS: PANTOPRAZOLE 40MG TABLET 40 MG PO (21:09)
[2024-11-04] MEDS: TRAZODONE 50MG TABLET 50 MG PO (21:09)
[2024-11-04] MEDS: HEPARIN 25,000 UNITS/D5W 500 ML 17.701 UNIT IV (21:10)
[2024-11-04] MEDS: HEPARIN SODIUM 5,000 UNIT/ML VIAL 4000 UNIT IV (21:10)
[2024-11-04 21:21] VITALS: PULSE 108
[2024-11-04 22:00] VITALS: BP 149/94; PULSE 115; RESP 25; O2SAT 92
[2024-11-04] MEDS: HEPARIN 25,000 UNITS/D5W 500 ML 17.7 UNIT IV (22:06)
[2024-11-05] VITALS (12 sets, daily range): BP systolic 96–167; BP diastolic 62–110; PULSE 83–200; RESP 13–25; TEMP 36.2–36.5; O2SAT 89–98; BMI 30.7
[2024-11-05 00:06] LABS: Troponin I 0.04 ng/ml (0.00-0.034)
[2024-11-05] MEDS: IPRATROPIUM/ALBUTEROL 3 ML NEB IH ×3 (00:20→11:15)
[2024-11-05 03:37] LABS: PTT Heparin (inpatient only) 30.0 Seconds (50-75)
[2024-11-05] MEDS: HEPARIN 25,000 UNITS/D5W 500 ML 24 UNIT IV (04:22)
[2024-11-05] MEDS: HEPARIN SODIUM 5,000 UNIT/ML VIAL 4000 UNIT IV (04:24)
[2024-11-05] MEDS: humaLOG 100 UNITS/ML 10ML VIAL (SSI) SUBCUT ×2 (06:29→11:23)
[2024-11-05] MEDS: BUDESONIDE 0.5MG/2ML NEB 0.5 MG IH (06:41)
[2024-11-05] MEDS: ACETAMINOPHEN 500MG TAB 1000 MG PO (06:59)
[2024-11-05 07:50] LABS: Hematocrit 44.8 % (37.0-47.0); Hemoglobin 15.7 g/dL (12.2-16.2); Immature Granulocytes % 0.9 %; Mean Corpuscular HGB Conc 35.0 g/dL (31.8-35.4); Mean Corpuscular Hemoglobin 30.5 pg (27.0-31.2); Mean Corpuscular Volume 87.2 fl (81-99); Nucleated Red Blood Cells % 0 %; Platelet Count 206 K/mm3 (142-424); Red Blood Count 5.14 M/mm3 (4.20-5.40); Red Cell Distribution Width-SD 43.3 fL; White Blood Count 7.7 K/mm3 (4.8-10.8)
[2024-11-05 08:04] LABS: INR 1.04 (0.9-1.1); Prothrombin Time 11.5 seconds (10.1-12.5)
--- NOTE | 2024-11-05 08:09 | P.CONPHA_ITS ---
[facility] Pharmacy Heparin Dosing Demographic Data Admission date:: 11/04/24 Date: 11/05/24 Time: 08:09 Allergies Allergy/AdvReac Type Severity Reaction Status Date / Time amoxicillin Allergy Unknown Verified 07/07/24 03:52 allergy reaction ampicillin Allergy Unknown Verified 07/07/24 03:52 allergy reaction empagliflozin (From Allergy Unknown Verified 07/07/24 03:52 Jardiance) allergy reaction Height: 1.55 m Weight: 73.799 kg Indication Medication therapy:: Heparin Current Indications:: NSTEMI - LOW DOSE PROTOCOL Current Active Problems (Updated 11/04/24 @ 20:09 by Yehuda Chaudhary MD) COPD (chronic obstructive pulmonary disease) (Acute) Tobacco dependence due to cigarettes (Acute) CAD (coronary artery disease) (Acute) Type 2 diabetes mellitus with hyperglycemia (Acute) NSTEMI (non-ST elevated myocardial infarction) (Acute) CVA?: No Bleeding problem?: No Kidney disease?: No OK?: Yes Additional History:: COPD, TOBACCO USE DISORDER, HISTORY OF DVT, CORONARY ARTERY DISEASE, TYPE 2 DIABETES. Desired PTT range:: 50-75 seconds Comments:: BASELINE PTT: 26.5 SECONDS (11/04/24 20:18) Labs Anticoagulation Lab Results:: 11/05/24 07:40 Hgb 15.7 Hct 44.8 Plt Count 206 Monitoring Dose Monitor 1: Date: 11/04/24 Time: 20:18 PTT Result:: BASELINE PTT : 26.5 SECONDS Infusion Rate:: KULWINDER RECOMMENDED INITIATING HEPARIN DRIP AT 885 UNITS/HOUR = 17.7 ML/HOUR AND BOLUSING 4000 UNITS HEPARIN IV ONCE. Dose Monitor 2: Date: 11/05/24 Time: 03:00 PTT Result:: 30.0 SECONDS Infusion Rate:: KULWINDER RECOMMENDED INCREASING HEPARIN DRIP TO 1200 UNITS/HOUR = 24 ML/HOUR AND BOLUSING 4000 UNITS HEPARIN IV ONCE. Dose Monitor 3: Date: 11/05/24 Time: 10:00 Infusion Rate:: DRIP STOPPED BY DR KATRIN JAIMES RN. Comment:: PLATELETS = 206,000 Core Measures Is INR > or = 2 at discharge?: No Most Recent Labs:: Laboratory Results - last 24 hr 11/04/24 20:18: APTT 26.5 L 11/04/24 23:13: Troponin I 0.04 H 11/05/24 03:10: APTT 30.0 L 11/05/24 07:40: WBC 7.7, RBC 5.14, Hgb 15.7, Hct 44.8, MCV 87.2, MCH 30.5, MCHC 35.0, RDW 13.6, Plt Count 206, MPV 10.5 H, Neut % (Auto) 55.5, Lymph % (Auto) 36.5, Whitman % (Auto) 6.2, Eos % (Auto) 0.0 L, Baso % (Auto) 0.9, Neut # (Auto) 4.3, Lymph # (Auto) 2.8, Whitman # (Auto) 0.5, Eos # (Auto) 0.0, Baso # (Auto) 0.1, PT 11.5, INR 1.04 If INR was < than 2.0 why was therapy stopped?: DRIP STOPPED BY DR KATRIN JAIMES RN. Were Heparin and Warfarin started on the same day?: No If not, why?: DRIP STOPPED BY DR KATRIN JAIMES RN.
[2024-11-05 08:16] LABS: Troponin I 0.04 ng/ml (0.00-0.034)
[2024-11-05 08:34] LABS: Thyroid Stimulating Hormone 3.27 uIU/mL (0.465-4.68)
--- NOTE | 2024-11-05 08:34 | PC.NURSE ---
This AM at 0755 patient stated that she wanted to leave AMA. MD made aware. Dietary just went into the room as well to check on her breakfast and patient stated again that she was going to leave because no one is telling me anything .
[2024-11-05 08:37] LABS: Albumin Level 3.6 g/dl (3.5-5.0); Chloride 103 mmol/L (98-107); Sodium 134 mmol/L (136-145)
[2024-11-05 08:38] LABS: Potassium 3.9 mmoL/L (3.5-5.1)
[2024-11-05 08:40] LABS: Alanine Aminotransferase 17 U/L (12-78); Albumin/Globulin Ratio 1.2 (1.1-1.8); Alkaline Phosphatase 122 U/L (38-126); Anion Gap 10.9 mEq/L (5-15); Aspartate Amino Transferase 19 U/L (14-36); Bilirubin,Total 0.3 mg/dl (0.2-1.3); Blood Urea Nitrogen 20 mg/dl (7-17); Calcium 9.0 mg/dl (8.4-10.2); Carbon Dioxide 24 mmol/L (22.0-30.0); Cholesterol 232 mg/dl (140-200); Creatinine Clearance Estimated 105 mL/min (50-200); Creatinine,Serum 0.70 mg/dl (0.52-1.04); Estimated Glomerular Filt Rate 87 ml/min (>60); GFR (African American) 105 ML/MIN (>60); Globulin 2.9 g/dL (1.3-3.2); Glucose 268 mg/dl (74-100); Total Protein,Serum 6.5 g/dl (6.3-8.2); Triglycerides 272 mg/dl (30-150)
[2024-11-05 08:41] LABS: HDL Cholesterol 38 mg/dl (40-60); Magnesium 1.7 mg/dl (1.6-2.3)
[2024-11-05 08:50] LABS: NT Pro Brain Natriuretic Pep. 571 pg/mL (0-125)
[2024-11-05] MEDS: ISOSORBIDE MONO 30MG TAB.ER.24H 30 MG PO (08:51)
[2024-11-05] MEDS: DOCUSATE SODIUM 100 MG CAPSULE PO (08:51)
[2024-11-05] MEDS: IRBESARTAN 150MG TAB 150 MG PO (08:51)
[2024-11-05] MEDS: METOPROLOL SUCCINATE XL 50MG TABLET 50 MG PO (08:51)
[2024-11-05] MEDS: ASPIRIN EC 81MG TABLET 81 MG PO (08:52)
[2024-11-05] MEDS: SPIRONOLACTONE 25MG TABLET 25 MG PO (08:52)
[2024-11-05] MEDS: CLOPIDOGREL 75MG TAB 75 MG PO (08:52)
[2024-11-05 09:05] LABS: Hemoglobin A1C 8.7 % (4.0-6.0)
--- NOTE | 2024-11-05 09:21 | CT_ITS ---
PROCEDURE INFORMATION: Exam: CT Abdomen And Pelvis With Contrast Exam date and time: 11/05/2024 11:05 AM Age: 54 years old Clinical indication: Constipation; Additional info: Upper abd pain, constipation TECHNIQUE: Imaging protocol: Computed tomography of the abdomen and pelvis with contrast. Radiation optimization: All CT scans at this facility use at least one of these dose optimization techniques: automated exposure control; mA and/or kV adjustment per patient size (includes targeted exams where dose is matched to clinical indication); or iterative reconstruction. Contrast material: ISOVUE; Contrast volume: 75 ml; Contrast route: IV; COMPARISON: CT CHEST WO CON 11/05/2024 11:03 AM FINDINGS: Liver: Liver demonstrates few small calcified granulomata. No mass. Gallbladder and biliary ducts: Gallbladder is normal. No calcified stones. No ductal dilatation. Pancreas: Pancreas is normal. No ductal dilatation. Spleen: No splenomegaly. Calcified splenic granulomata. Adrenal glands: Mild non-specific ysrv-gmxwclm-dbcm-right adrenal gland thickening. Kidneys and ureters: Both kidneys demonstrate scattered cortical scarring There is a 1.2 cm right renal cyst. There is a 1.7 cm hypodense lesion in the left kidney of intermediate attenuation, indeterminate. Left subcentimeter fluid density cortical lesion compatible with a cyst. Both kidneys demonstrate small non-obstructing renal stone. No hydronephrosis. Stomach and bowel: No bowel obstruction. Fecal content throughout majority of the colon. No appreciable abnormal bowel wall thickening given segments of nondistention. Stomach is nondistended which exaggerates gastric mural thickening, limits evaluation. Appendix: No evidence of appendicitis. Intraperitoneal space: No free air. No significant fluid collection. Vasculature: Atherosclerotic disease. Aortoiliac occlusive disease which appears chronic with small caliber inferior abdominal aorta and bilateral iliac arteries. The abdominal aorta becomes occluded just below the level of the renal arteries. There is greater than 50% aortic stenosis at the level of the renal arteries with mild luminal narrowing of the more proximal upper abdominal aorta. Distal common iliac arteries reconstitute. Bilateral external iliac arteries are small in caliber, patent. Common femoral arteries are patent with mild disease. Patent internal iliac arteries. Upbv-dm-[id number] stenosis of the proximal SMA. There appears to be moderate/severe ostial/proximal stenosis of the left renal artery, severe on the right which is better demonstrated on coronal/sagittal images. ERIKA reconstitutes proximally and is patent. Mixing artifact within the portal venous system secondary to phase of imaging. Lymph nodes: No enlarged lymph nodes. Urinary bladder: Urinary bladder is nondistended, limited evaluation. Reproductive: Status post hysterectomy. Bones/joints: Multilevel degenerative changes of the included spine. Mild/moderate central superior endplate compression deformity at L3 and mild central superior compression endplate deformity at L5, favored to be remote. Soft tissues: Small fat containing umbilical hernia. IMPRESSION: 1. No bowel obstruction. Fecal content throughout the majority of the colon. 2. Aortoiliac occlusive disease which appears chronic. Aorta becomes occluded just below the level of the renal arteries, greater than 50% aortic stenosis at the level of the renal arteries. Distal common iliac arteries reconstitute. Bilateral renal artery stenosis. 3. Bilateral renal cortical scarring. Nonobstructing small renal stones. No hydronephrosis. Left renal 1.7 cm indeterminate intermediate attenuating lesion, suspect this is a benign/hemorrhagic cyst. Recommend nonemergent ultrasound or multiphase CT/MR imaging to ensure this is a benign lesion. 4. Additional chronic and incidental findings as above. Please see separate CT chest report for findings above the diaphragm.
--- NOTE | 2024-11-05 09:23 | CT_ITS ---
PROCEDURE INFORMATION: Exam: CT Chest Without Contrast; Diagnostic Exam date and time: 11/05/2024 11:03 AM Age: 54 years old Clinical indication: Shortness of breath TECHNIQUE: Imaging protocol: Diagnostic computed tomography of the chest without contrast. Radiation optimization: All CT scans at this facility use at least one of these dose optimization techniques: automated exposure control; mA and/or kV adjustment per patient size (includes targeted exams where dose is matched to clinical indication); or iterative reconstruction. COMPARISON: CT ANGIO CHEST PE PROTOCOL 07/07/2024 7:33 AM FINDINGS: Lungs: Mild pulmonary emphysema. Multiple scattered bilateral pulmonary nodules, most of which are new from prior, largest measuring 7 mm. There is an 8 mm anterior right upper lobe subsolid nodular density (series 3, image 45, series 1002, image 45). Previously described subpleural right lower lobe nodule measuring 7 mm in greatest dimension is stable. Medial right middle lobe and lingular subsegmental atelectasis and bibasilar subsegmental/dependent atelectasis. Mild secretions noted within the central airways. Pleural spaces: No pneumothorax. No pleural effusion. Heart: Heart size is normal. There appears to be subendocardial fat attenuation along the lateral LV wall which may be secondary to prior infarct. No pericardial effusion. Mild aortic valve calcification. Coronary arteries: Multi-vessel coronary artery calcifications, subjectively severe. Lymph nodes: Calcified mediastinal/hilar lymph nodes compatible with remote granulomatous disease. Vasculature: Limited evaluation without contrast. Mild calcified aortic atherosclerosis. No thoracic aortic aneurysm. Main pulmonary artery is borderline dilated measuring 3 cm in diameter. Bones/joints: No acute or suspicious osseous lesion. Multilevel degenerative changes of the included spine are again demonstrated. Soft tissues: Unremarkable. IMPRESSION: 1. Pulmonary emphysema. Multiple scattered bilateral pulmonary nodules as above, most of which are new from prior, possibly infectious/inflammatory, malignant etiology not be excluded. For patients at low risk (minimal or absent history of smoking and of other known risk factors), recommend CT Chest at 3-6 months, then consider CT Chest at 18-24 months. For patients at high risk (history of smoking or of other known risk factors), recommend CT Chest at 3-6 months, then CT Chest at 18-24 months. (Reference: Rudy) 2. Calcified aortic atherosclerosis. No thoracic aortic aneurysm. Multi-vessel coronary artery calcifications. LV appears to have subendocardial fat attenuation along the lateral LV wall suggesting prior infarct. Aortic valve calcifications which may indicate presence of aortic stenosis, can correlate with echocardiogram as clinically indicated. 3. Other incidental findings as above. Please see separate CT abdomen and pelvis report for findings below the diaphragm. COMMENTS: The presence of pulmonary emphysema on CT is an independent risk factor for lung cancer. In the absence of a history or active diagnosis of lung cancer, it is recommended that this patient with emphysema be evaluated for enrollment in a low dose CT lung cancer screening program. REFERENCES: Rudy Salinas, et al. Guidelines for Management of Incidental Pulmonary Nodules Detected on CT Images: From the Fleischner Society 2017. Radiology. 2017;284(1):228-243.
[2024-11-05 09:34] LABS: Lipase 280 U/L (23-300)
--- NOTE | 2024-11-05 10:28 | PC.NURSE ---
left the ICU with med surg staff to go to room 201
[2024-11-05 11:02] LABS: POC Glucose,Bedside 194 (70-110)
[2024-11-05] MEDS: SODIUM CHLORIDE 0.9% 10ML SYR (RAD ONLY) 10 ML IV (11:03)
[2024-11-05] MEDS: IOPAMIDOL-370 (76%);100ML BOTTLE 75 ML IV (11:03)
[2024-11-05 11:43] LABS: Adenovirus,PCR Not Detected (NotDetected); Chlamydophila Pneumoniae, PCR Not Detected (NotDetected); Coronavirus 19, PCR Not Detected (NotDetected); Coronovirus HKU1,PCR Not Detected (NotDetected); Influenza A, PCR Not Detected (NotDetected); Influenza AH1, 2009 Not Detected (NotDetected); Influenza AH1, PCR Not Detected (NotDetected); Influenza AH3,PCR Not Detected (NotDetected); Influenza B, PCR Not Detected (NotDetected); Mycoplasma Pneumoniae, PCR Not Detected (NotDetected); Parainfluenza 1, PCR Not Detected (NotDetected); Parainfluenza 2, PCR Not Detected (NotDetected); Parainfluenza 3, PCR Not Detected (NotDetected); Parainfluenza 4, PCR Not Detected (NotDetected)
--- NOTE | 2024-11-05 13:18 | HMH.PHAINT1 ---
Pharmacy Intervention Comments: MEDICATION RECONCILIATION COMPLETE USING EXTERNAL PHARMACY FILL HISTORY AND PATIENT INTERVIEW.
[2024-11-05] MEDS: PARoxetine 20MG TABLET 40 MG PO (14:51)
[2024-11-05] MEDS: POLYETHYLENE GLYCOL 3350 17 GM PACKET PO (14:51)
--- NOTE | 2024-11-05 15:24 | HMH.PTEV ---
Physical Therapy Evaluation Rehab PT IP Evaluation Start: 11/05/24 01:15 Freq: ONCE Status: Active Protocol: Document 11/05/24 15:21 SHERWIN (Rec: 11/05/24 15:24 SHERWIN [id number]) Subjective/History History History 54-year-old female that presents to [facility] ICU with transition of care from [facility] emergency department for identified presenting chest pain, abnormal ECG and elevated troponin. [facility] ED provider contacted poolroom table attendant who recommended transition of care to [facility] for NSTEMI and cardiology services. The patient presented to outside hospital with chest pain and her ED evaluation identified elevated troponins with past medical history significant for coronary disease and stent placement by Dr. Bullock in [facility] (data deficit). Currently the patient reports no further chest pain and she is tolerating her IV anticoagulation therapy with no identified unusual headaches, bruising or bleeding. She reports no acute dyspnea, palpitations, nausea, vomiting or diaphoresis. Her presenting blood pressure to outside hospital was 183/91 with tachycardia stable respiratory rates and saturating appropriately on 3 L of oxygen via nasal cannula. Her usual home oxygen requirement is 2 L. Her ED chest x-ray identified no acute disease. Her electrolytes were normal including renal function with a creatinine 0.9. Her CBC identified a normal white blood cell count hemoglobin of 16 and normal platelets 230. She received a full aspirin, IV beta-taryn therapy and was she was started on IV heparin and her care was transitioned to our facility. Subjective Subjective Pt reports she lives with her daughter who assist her with ADLs. She uses a RW for ambulation sometimes and a w/c as needed other times. She reports no c/o pain at this time, only baseline B foot numbness due to neuropathy. [facility] How much help from another person do you currently need... Turning from your None back to your side while in a flat bed without using bedrails? Moving from lying on None back to sitting on the side of a flat bed without using bedrails? Moving to and from a None bed to a chair ( including a wheelchair)? Standing up from a None chair using your arms? (e.g., wheelchair, bedside chair) Walking in hospital A little room? Climbing 3-5 steps A little with a railing? Mobility Score 22 Mobility Level [place] Mobility 7 Walk 25 feet or more Mobility Calculator Rehab PT IP Eval Objective Appearance Patient Behavior Appropriate Patient Orientation Person,Place,Time Difficulty following none instructions Speech Pattern Clear Ambulation Patient Able to Yes Ambulate Ambulation Observation IP General Gait Shuffling Step Pattern Observation Ambulation Distance 5 (feet) Ambulation Assistive None Device Ambulation Ability Contact Guard/Hand Hold Balance Ability to Arise Able, uses arms to help Sitting Balance Steady, safe Standing Balance Steady, wide stance Dynamic Sitting Good Balance Ability Dynamic Standing Fair Balance Ability Transfers Bed Transfer Ability Independent Chair Transfer Independent Ability Sit to Stand Bed Independent Transfer Ability Sit to Stand Chair Independent Transfer Ability ROM All Extremities PT ROM Status WFL MMT All Extremities PT MMT WFL Rehab PT IP prob,goals,plan Problems Date of Evaluation: 11/05/24 Discharge Plan PT Discharge Plan Pt is currently appropriate to return home once medically stable for d/c. She would likely benefit from home health therapy after return home. No current acute therapy needs at this time. Eval Complexity Eval Charge Codes 70817 - High Complexity PHYSICIAN CERTIFICATION: I certify the specified therapy services for Margaret Georges are required, authorized, and reviewed every 30 days.
[2024-11-05] MEDS: BISACODYL 5MG TABLET 10 MG PO (15:38)
[2024-11-05] MEDS: NICOTINE 21MG/24HR PATCH 21 MG TD (15:38)
--- NOTE | 2024-11-05 16:24 | EXP.DC.SUM ---
General Admission date:: 11/04/24 HPI HPI HPI: This is a 54-year-old female that presents to [facility] ICU with transition of care from [facility] emergency department for identified presenting chest pain, abnormal ECG and elevated troponin. [facility] ED provider contacted resolution expert who recommended transition of care to [facility] for NSTEMI and cardiology services. The patient presented to outside hospital with chest pain and her ED evaluation identified elevated troponins with past medical history significant for coronary disease and stent placement by Dr. Bullock in [facility] (data deficit). Currently the patient reports no further chest pain and she is tolerating her IV anticoagulation therapy with no identified unusual headaches, bruising or bleeding. She reports no acute dyspnea, palpitations, nausea, vomiting or diaphoresis. Her presenting blood pressure to outside hospital was 183/91 with tachycardia stable respiratory rates and saturating appropriately on 3 L of oxygen via nasal cannula. Her usual home oxygen requirement is 2 L. Her ED chest x-ray identified no acute disease. Her electrolytes were normal including renal function with a creatinine 0.9. Her CBC identified a normal white blood cell count hemoglobin of 16 and normal platelets 230. She received a full aspirin, IV beta-taryn therapy and was she was started on IV heparin and her care was transitioned to our facility. Hospital Course Hospital Course Hospital Course: Margaret Georges is a 54-year-old female who presented to [facility] for right upper quadrant abdominal pain. She was found to have a high-sensitivity troponin in the low 1000's for which she was transferred to our facility for further evaluation management by interventional cardiology. On my evaluation, patient denied any chest pain but continued to have right upper quadrant pain. CT abdomen/pelvis was obtained which showed significant constipation and diffuse arthrosclerosis will including greater than 50% stenosis in the aorta below the renal arteries, bilateral renal artery stenosis. Patient did have a troponin that plateaued at 0.04. However, patient does have a significant cardiovascular history including multiple coronary stents. For this reason, I discussed with Dr. Villafuerte who recommended C on Thursday. Patient adamantly refused to stay until Thursday, she stated she wanted to have it spoke. After extensive conversation and the risks of not getting appropriate treatment before discharge could include , patient ultimately decided to leave AMA and understood these risks. Total time spent on discharge: 32 minutes on chart review, counseling, documentation, and direct care with patient. Questionnaires [place] Link: Launch [place] Website [place] Risk Score: 5.1% Exam Data for Last 24 hours Vital signs and Labs for Last 24 Hours: Temp Pulse Resp BP Pulse Ox O2 Del Method O2 Flow Rate 97.2 F L 91 H 18 96/62 L 91 L Nasal Cannula 2 11/05/24 12:00 11/05/24 12:00 11/05/24 12:00 11/05/24 12:00 11/05/24 12:00 11/05/24 15:00 11/05/24 15:00 Laboratory Results - last 24 hr 11/04/24 20:18: APTT 26.5 L 11/04/24 23:13: Troponin I 0.04 H 11/05/24 03:10: APTT 30.0 L 11/05/24 07:40: WBC 7.7, RBC 5.14, Hgb 15.7, Hct 44.8, MCV 87.2, MCH 30.5, MCHC 35.0, RDW 13.6, Plt Count 206, MPV 10.5 H, Neut % (Auto) 55.5, Lymph % (Auto) 36.5, [place] % (Auto) 6.2, Eos % (Auto) 0.0 L, Baso % (Auto) 0.9, Neut # (Auto) 4.3, Lymph # (Auto) 2.8, [place] # (Auto) 0.5, Eos # (Auto) 0.0, Baso # (Auto) 0.1, PT 11.5, INR 1.04, Sodium 134 L, Potassium 3.9, Chloride 103, Carbon Dioxide 24, Anion Gap 10.9, BUN 20 H, Creatinine 0.70, Estimated Creat Clear 105, Estimated GFR 87, Est GFR ( Amer) 105, Glucose 268 H, Hemoglobin A1c 8.7 H, Calcium 9.0, Magnesium 1.7, Total Bilirubin 0.3, AST 19, ALT 17, Alkaline Phosphatase 122, Troponin I 0.04 H, NT-Pro-B Natriuret Pep 571 H, Total Protein 6.5, Albumin 3.6, Globulin 2.9, Albumin/Globulin Ratio 1.2, Triglycerides 272 H, Cholesterol 232 H, LDL Cholesterol Direct 150.32 H, VLDL Cholesterol 54 H, HDL Cholesterol 38 L, Cholesterol/HDL Ratio 6.1 H, Lipase 280, TSH 3.27 11/05/24 10:54: POC Glucose 194 H 11/05/24 11:38: Chlamy pneumoniae PCR Not detected, Adenovirus (PCR) Not detected, B. pertussis DNA (PCR) Not detected, Coronavirus OC43 (PCR) Not detected, Coronavirus HKU1 (PCR) Not detected, Coronavirus 229E (PCR) Not detected, SARS-CoV-2 (PCR) Not detected, Coronavirus NL63 (PCR) Not detected, Human Metapneumovir PCR Not detected, Influenza A (H1) PCR Not detected, Influ A (H1N1/09) PCR Not detected, Influenza A (H3) PCR Not detected, Influenza Type A (PCR) Not detected, Influenza Type B (PCR) Not detected, M. pneumoniae (PCR) Not detected, Parainfluenza 1 (PCR) Not detected, Parainfluenza 2 (PCR) Not detected, Parainfluenza 3 (PCR) Not detected, Parainfluenza 4 (PCR) Not detected, RSV (PCR) Not detected, Entero/Rhino (PCR) Not detected I & O for Last 24 hours: Intake & Output 11/02/24 11/03/24 11/04/24 11/05/24 23:59 23:59 23:59 23:59 Intake Total 740 / 740 Output Total 850 / 850 Balance -110 / -110 Weight 73.754 kg 73.799 kg Constitutional Constitutional: no acute distress, obese and chronically ill appearing *Routine HEENT Exam Head: Present normocephalic Eye: Present EOMI and PERRL ENT: Present mucous membranes moist *Routine Neck Exam Neck: Present supple; Absent lymphadenopathy *Routine Respiratory Exam Respiratory: Present CTA bilaterally *Routine Cardiovascular Exam Cardiovascular: Present RRR *Routine Abdominal Exam Abdominal: Present soft and normoactive bowel sounds; Absent tenderness *Routine Extremities Exam Extremities: Absent cyanosis, clubbing or edema *Routine Skin Exam Skin: Present warm; Absent rash *Routine Neurological Exam Neurological: Present alert and oriented X3 Results Data Completed and Pending Labs on day of discharge: Labs from last 24 hours 11/05/24 11/05/24 11/05/24 11:38 10:54 07:40 WBC 7.7 RBC 5.14 Hgb 15.7 Hct 44.8 MCV 87.2 MCH 30.5 MCHC 35.0 RDW 13.6 Plt Count 206 MPV 10.5 H Neut % (Auto) 55.5 Lymph % (Auto) 36.5 [place] % (Auto) 6.2 Eos % (Auto) 0.0 L Baso % (Auto) 0.9 Neut # (Auto) 4.3 Lymph # (Auto) 2.8 [place] # (Auto) 0.5 Eos # (Auto) 0.0 Baso # (Auto) 0.1 PT 11.5 INR 1.04 APTT Sodium 134 L Potassium 3.9 Chloride 103 Carbon Dioxide 24 Anion Gap 10.9 BUN 20 H Creatinine 0.70 Estimated Creat Clear 105 Estimated GFR 87 Est GFR ( Amer) 105 Glucose 268 H POC Glucose 194 H Hemoglobin A1c 8.7 H Calcium 9.0 Magnesium 1.7 Total Bilirubin 0.3 AST 19 ALT 17 Alkaline Phosphatase 122 Troponin I 0.04 H NT-Pro-B Natriuret Pep 571 H Total Protein 6.5 Albumin 3.6 Globulin 2.9 Albumin/Globulin Ratio 1.2 Triglycerides 272 H Cholesterol 232 H LDL Cholesterol Direct 150.32 H VLDL Cholesterol 54 H HDL Cholesterol 38 L Cholesterol/HDL Ratio 6.1 H Lipase 280 TSH 3.27 Chlamy pneumoniae PCR Not detected Adenovirus (PCR) Not detected B. pertussis DNA (PCR) Not detected Coronavirus OC43 (PCR) Not detected Coronavirus HKU1 (PCR) Not detected Coronavirus 229E (PCR) Not detected SARS-CoV-2 (PCR) Not detected Coronavirus NL63 (PCR) Not detected Human Metapneumovir PCR Not detected Influenza A (H1) PCR Not detected Influ A (H1N1/09) PCR Not detected Influenza A (H3) PCR Not detected Influenza Type A (PCR) Not detected Influenza Type B (PCR) Not detected M. pneumoniae (PCR) Not detected Parainfluenza 1 (PCR) Not detected Parainfluenza 2 (PCR) Not detected Parainfluenza 3 (PCR) Not detected Parainfluenza 4 (PCR) Not detected RSV (PCR) Not detected Entero/Rhino (PCR) Not detected 11/05/24 11/04/24 11/04/24 03:10 23:13 20:18 WBC RBC Hgb Hct MCV MCH MCHC RDW Plt Count MPV Neut % (Auto) Lymph % (Auto) [place] % (Auto) Eos % (Auto) Baso % (Auto) Neut # (Auto) Lymph # (Auto) [place] # (Auto) Eos # (Auto) Baso # (Auto) PT INR APTT 30.0 L 26.5 L Sodium Potassium Chloride Carbon Dioxide Anion Gap BUN Creatinine Estimated Creat Clear Estimated GFR Est GFR ( Amer) Glucose POC Glucose Hemoglobin A1c Calcium Magnesium Total Bilirubin AST ALT Alkaline Phosphatase Troponin I 0.04 H NT-Pro-B Natriuret Pep Total Protein Albumin Globulin Albumin/Globulin Ratio Triglycerides Cholesterol LDL Cholesterol Direct VLDL Cholesterol HDL Cholesterol Cholesterol/HDL Ratio Lipase TSH Chlamy pneumoniae PCR Adenovirus (PCR) B. pertussis DNA (PCR) Coronavirus OC43 (PCR) Coronavirus HKU1 (PCR) Coronavirus 229E (PCR) SARS-CoV-2 (PCR) Coronavirus NL63 (PCR) Human Metapneumovir PCR Influenza A (H1) PCR Influ A (H1N1/09) PCR Influenza A (H3) PCR Influenza Type A (PCR) Influenza Type B (PCR) M. pneumoniae (PCR) Parainfluenza 1 (PCR) Parainfluenza 2 (PCR) Parainfluenza 3 (PCR) Parainfluenza 4 (PCR) RSV (PCR) Entero/Rhino (PCR) DS: Diagnosis Discharge Diagnosis (1) NSTEMI (non-ST elevated myocardial infarction): Status: Acute Code(s): I21.4 - Non-ST elevation (NSTEMI) myocardial infarction (2) CAD (coronary artery disease): Status: Acute Code(s): I25.10 - Atherosclerotic heart disease of [place] coronary artery without angina pectoris (3) Tobacco dependence due to cigarettes: Status: Acute Code(s): F17.210 - Nicotine dependence, cigarettes, uncomplicated (4) Type 2 diabetes mellitus with hyperglycemia: Status: Acute Code(s): E11.65 - Type 2 diabetes mellitus with hyperglycemia (5) COPD (chronic obstructive pulmonary disease): Status: Acute Code(s): J44.9 - Chronic obstructive pulmonary disease, unspecified Meds Home Medications and Allergies Home Medications ?Medication ?Instructions ?Recorded ?Confirmed ?Type aspirin 81 mg chewable tablet 81 mg PO DAILY 07/07/24 11/05/24 History atorvastatin 80 mg tablet 80 mg PO HS 07/07/24 11/05/24 History budesonide 160 mcg-glycopyr 9 2 inh inhalation BIDRT 07/07/24 11/05/24 History mcg-formot 4.8 mcg/actuation HFA inhaler (Breztri Aerosphere) celecoxib 200 mg capsule (Celebrex) 200 mg PO DAILY 07/07/24 11/05/24 History clopidogrel 75 mg tablet (Plavix) 75 mg PO DAILY 07/07/24 11/05/24 History famotidine 20 mg tablet 20 mg PO BID 07/07/24 11/05/24 History glipizide 10 mg tablet, extended 10 mg PO DAILY 07/07/24 11/05/24 History release 24 hr insulin glargine 100 unit/mL (3 30 unit SQ HS 07/07/24 11/05/24 History mL) subcutaneous pen (Lantus Solostar U-100 Insulin) ipratropium 0.5 mg-albuterol 3 mg 3 ml inhalation QIDRT 07/07/24 11/05/24 History (2.5 mg base)/3 mL nebulization soln isosorbide mononitrate 30 mg 30 mg PO DAILY 07/07/24 11/05/24 History tablet,extended release 24 hr lisinopril 5 mg tablet 5 mg PO DAILY 07/07/24 11/05/24 History metoprolol succinate 50 mg 50 mg PO DAILY 07/07/24 11/05/24 History tablet,extended release 24 hr montelukast 10 mg tablet 10 mg PO HS 07/07/24 11/05/24 History paroxetine HCl 40 mg tablet 40 mg PO DAILY 07/07/24 11/05/24 History spironolactone 25 mg tablet 25 mg PO DAILY 07/07/24 11/05/24 History thiamine HCl (vitamin B1) 100 mg 100 mg PO DAILY 07/07/24 11/05/24 History tablet trazodone 50 mg tablet 50 mg PO HS 07/07/24 11/05/24 History dulaglutide 3 mg/0.5 mL 3 mg SQ WEEKLY 11/05/24 11/05/24 History subcutaneous pen injector (Trulicity) nystatin 100,000 unit/gram topical 1 applic topical BID 11/05/24 11/05/24 History powder New Prescriptions to Start Prescriptions: Allergies Allergy/AdvReac Type Severity Reaction Status Date / Time amoxicillin Allergy Unknown Verified 07/07/24 03:52 allergy reaction ampicillin Allergy Unknown Verified 07/07/24 03:52 allergy reaction empagliflozin (From Allergy Unknown Verified 07/07/24 03:52 Jardiance) allergy reaction Discharge Plan Disposition Patient Disposition: Left Against Medical Advice Patient Discharge Instructions Print Language: Thai Providers Admit Provider: Eligio Acosta Attending Provider: Eligio Acosta
[2024-11-05 16:27] LABS: POC Glucose,Bedside 232 (70-110)
--- NOTE | 2024-11-05 16:49 | PC.NURSE ---
Pt has persistently expressed her wish to leave AMA today if she wasn't going to be discharged. MD notified of pt wishes. MD as well as this nurse and charge nurse had thorough conversations with patient about her wish to leave AMA. Pt educated on risks of leaving AMA and verbalizes understanding of what this means. Pt continues to state I want to go home. Pt has requested and been persistent about wanting to sit in the lobby and wait to see if someone is driving towards [place]. Pt is aware that she needs oxygen but continues to verbalize wanting to leave.
[2024-11-05 21:03] LABS: POC Glucose,Bedside 291 (70-110)
[2024-11-05 21:03] LABS: POC Glucose,Bedside 274 (70-110)
== END 2024-11-05 17:08 | disposition left against medical advice (07) ==
LOC: ICU 11-05 05:53 → 2ND 11-05 10:45
PROVIDERS: Family Medicine; Admitting Provider Student in an Organized Health Care Education/Training Program; PCP Physician Assistant; Visit Provider Student in an Organized Health Care Education/Training Program
DX: I21.4 Non-ST elevation (NSTEMI) myocardial infarction (principal); I25.10 Atherosclerotic heart disease of native coronary artery without angina pectoris; E66.9 Obesity, unspecified; E11.65 Type 2 diabetes mellitus with hyperglycemia; J43.9 Emphysema, unspecified; R91.8 Other nonspecific abnormal finding of lung field; I70.0 Atherosclerosis of aorta; J96.21 Acute and chronic respiratory failure with hypoxia; J98.11 Atelectasis; M47.9 Spondylosis, unspecified; I45.10 Unspecified right bundle-branch block; R00.0 Tachycardia, unspecified; F39 Unspecified mood [affective] disorder; I16.1 Hypertensive emergency; F41.9 Anxiety disorder, unspecified; I11.0 Hypertensive heart disease with heart failure; I50.9 Heart failure, unspecified; F17.210 Nicotine dependence, cigarettes, uncomplicated; Z68.30 Body mass index [BMI] 30.0-30.9, adult; Z88.0 Allergy status to penicillin; Z82.49 Family history of ischemic heart disease and other diseases of the circulatory system; Z95.5 Presence of coronary angioplasty implant and graft; Z88.8 Allergy status to other drugs, medicaments and biological substances; Z79.4 Long term (current) use of insulin; Z79.84 Long term (current) use of oral hypoglycemic drugs; Z79.899 Other long term (current) drug therapy
CPT/HCPCS: 0223U; 36415; 71045; 71250; 74177; 80053; 80061; 82962; 83036; 83690; 83735; 83880; 84443; 84484; 85025; 85610; 85730; 93005; 94640; 96365; 96366; 96376; 97163; G0378; J1644; Q9967